=== PATIENT | female | born 1970 | race Caucasian/White ===

== ENCOUNTER 2017-03-18 15:51 | Emergency (ER) | payer OTHER ==
[2017-03-18 15:52] VITALS: BP 146/92; PULSE 84; RESP 20; TEMP 98.6; O2SAT 99
--- NOTE | 2017-03-18 16:37 | PD ---
Physical Exam Time Seen by Provider: 16:33 Narrative 46-year-old female with complaint of worsening of right lower quadrant abdominal pain and right low back pain that started on Sunday and was seen here on Sunday night. Says she has history of colitis and did not tell the provider at that time. Subjective fever. Denies vomiting, diarrhea, dysuria. Feels like her belly is inflamed. Patient seen in triage. Vital signs reviewed. Patient awaiting bed placement. Data Data Last Documented VS Vital Signs Date Time Temp Pulse Resp B/P (MAP) Pulse Ox O2 Delivery O2 Flow Rate FiO2 03/18/17 15:52 98.6 84 20 146/92 (110) 99 MDM Supervised Visit with YANETH: Shavon Mcdowell Mar 18, 2017 16:37
--- NOTE | 2017-03-18 18:20 | PD ---
HPI Chief Complaint: GI Complaint Time Seen by Provider: 18:09 Travel History International Travel<30 days: No Contact w/Intl Traveler<30days: No Traveled to known affect area: No History of Present Illness HPI Patient is a 46 year old female presents to the ER for abdominal pain. Seen here yesterday for same under different medical record number. visit number [id number]. Patient states she's been having right-sided back pain and flank pain for the past few days, she was feeling better when she left yesterday but took 2 ibuprofen and states she did not feeling any better. She has not followed up with a primary care physician since being seen. She states she's also been having some pain in her rectal area. That in [place] sometime ago she was diagnosed with colitis. Denies any vaginal bleeding vaginal discharge. Her complete workup yesterday did include a CAT scan of her abdomen which was negative basic blood work UA and urine test all of which was negative. PFSH Past Medical History Medical History: Denies Significant Hx Past Surgical History Surgical History: No Previous Surgery Family History Family History: Negative Social History Alcohol Use: No Tobacco Use: No Substance Use: No Allergies-Medications (Allergen,Severity, Reaction): Coded Allergies: No Known Allergies (Unverified , 03/18/17) Reported Meds & Prescriptions Reported Meds & Active Scripts Active Ultram (Tramadol HCl) 50 Mg Tab 50 Mg PO Q6H PRN Review of Systems Except as stated in HPI: all other systems reviewed are Neg Physical Exam Narrative GENERAL: Well-developed well-nourished minimally uncomfortable. SKIN: Focused skin assessment warm/dry. HEAD: Atraumatic. Normocephalic. EYES: Pupils equal and round. No scleral icterus. No injection or drainage. ENT: No nasal bleeding or discharge. Mucous membranes pink and moist. NECK: Trachea midline. No JVD. CARDIOVASCULAR: Regular rate and rhythm. No murmur appreciated. RESPIRATORY: No accessory muscle use. Clear to auscultation. Breath sounds equal bilaterally. GASTROINTESTINAL: Abdomen soft, non-tender, nondistended. Hepatic and splenic margins not palpable. No rebound no percussive tenderness. GENITOURINARY: Exam performed with female nurse supervisor production managing present all times, no gross discharge, no bimanual tenderness no cervical motion tenderness, no lesion. No bleeding. MUSCULOSKELETAL: No obvious deformities. No clubbing. No cyanosis. No edema. NEUROLOGICAL: Awake and alert. No obvious cranial nerve deficits. Motor grossly within normal limits. Normal speech. PSYCHIATRIC: Appropriate mood and affect; insight and judgment normal. Data Data Last Documented VS Vital Signs Date Time Temp Pulse Resp B/P (MAP) Pulse Ox O2 Delivery O2 Flow Rate FiO2 03/18/17 18:03 16 03/18/17 15:52 98.6 84 146/92 (110) 99 Orders Orders Wet Prep Profile (03/18/17 18:32) Gc And Chlamydia Pcr (03/18/17 18:32) Us Pelvis Comp W Doppler (03/18/17 ) Tramadol (Ultram) (03/18/17 20:30) Ed Discharge Order (03/18/17 21:02) Labs Laboratory Tests Test 03/18/17 21:20 Clue Cells (Wet Prep) NONE SEEN Vaginal Trichomonas (Wet Prep) NONE SEEN Vaginal Yeast (Wet Prep) NONE SEEN Chlamydia trachomatis DNA (PCR) NOT DETECTED Neisseria gonorrhoeae DNA (PCR) NOT DETECTED MDM Medical Decision Making Medical Screen Exam Complete: Yes Emergency Medical Condition: Yes Differential Diagnosis Abdominal pain, diverticulitis, diverticulosis, gastritis, gastric enteritis, cholecystitis, pink otitis, endometriosis, ovarian cyst. Narrative Course Patient roomed emergency department, reviewed her old records which includes a CAT scan of her abdomen, CBC CMP lipase UA and UPT all of which were reassuring yesterday. I explained to the patient that we can do an ultrasound and a pelvic exam to complete a workup here in the emergency department but at this time I do not know what is causing her pain and she needs follow-up with her regular physician and industrial relations officer. Slovenian appears to be her second language and there is some difficulty communicating with her but her friend translates this for her's well and verbalized understanding and agreement. She is stable for discharge Last 24 hours Impressions Pelvis Ultrasound 03/18/17 0000 Signed Impressions: Service Date/Time: Saturday, March 18, 2017 19:32 - CONCLUSION: Normal examination. Shade López MD Diagnosis Primary Impression: Abdominal pain Qualified Codes: R10.84 - Generalized abdominal pain Referrals: Kenya Calle MD [facility] Med/Other Pt SpecificInfo: Prescription(s) given Scripts Tramadol (Ultram) 50 Mg Tab 50 MG PO Q6H Y for PAIN, #10 TAB 0 Refills Prov: Madi Reynolds MD 03/18/17 Disposition: 01 DISCHARGE HOME Condition: Stable Madi Reynolds MD Mar 18, 2017 18:20
[2017-03-18] MEDS ORDERED: ULTR50TA5 PO (20:09)
--- NOTE | 2017-03-18 20:11 | RADRPT ---
EXAM DATE/TIME: 03/18/2017 19:32 [facility] COMPARISON: No previous studies available for comparison. INDICATIONS : Pelvic pain and fullness. MEDICAL HISTORY : Colitis. Pelvic pain. SURGICAL HISTORY : section. Tubal ligation. ENCOUNTER: Initial ACUITY: 4-6 days PAIN SCORE: 7/10 LOCATION: Bilateral pelvis MEASUREMENTS: UTERUS: 8.2 x 3.9 x 4.8 cm ENDOMETRIAL STRIPE: 8 mm RIGHT OVARY: 1.8 x 1.1 x 1.5 cm LEFT OVARY: 2.5 x 1.8 x 1.8 cm FINDINGS: UTERUS: The myometrium has homogeneous echotexture without mass. RIGHT OVARY: Ovary contains no mass or significant cystic lesion. LEFT OVARY: Ovary contains no mass or significant cystic lesion. MISCELLANEOUS: No free fluid. CONCLUSION: Normal examination. Shade López MD on March 18, 2017 at 20:08 Board Certified Radiologist. This report was verified electronically.
[2017-03-18] MEDS ORDERED: traMADol HCL 50 MG TAB PO ONE (20:30)
[2017-03-18 23:56] LABS: CHLAMYDIA PCR NOT DETECTED (NOT DETECT); NEISSERIA PCR NOT DETECTED (NOT DETECT)
== END 2017-03-18 21:41 | disposition home or self-care (01) ==
LOC: NEPD 15:51
DX: R10.84 Generalized abdominal pain (principal); M54.9 Dorsalgia, unspecified; K62.89 Other specified diseases of anus and rectum; Z87.19 Personal history of other diseases of the digestive system
CPT/HCPCS: 76856; 87210; 87491; 87591; 93975; 99285